=== PATIENT | male | born 1970 | race Caucasian/White ===

== ENCOUNTER → 2021-10-01 | Outpatient (CLI) | payer SELFPAY | LOC: LAB 11:34 | DX: U07.1 COVID-19 (principal); J40 Bronchitis, not specified as acute or chronic; J30.9 Allergic rhinitis, unspecified; J02.9 Acute pharyngitis, unspecified | CPT/HCPCS: 71046 ==

== ENCOUNTER 2021-10-05 16:38 | Emergency (ER) | payer SELFPAY ==
[2021-10-05 19:33] LABS: HEMOGLOBIN 14.6 gm/dl (14.0-17.5); RED BLOOD COUNT 4.66 M/UL (4.20-5.50)
[2021-10-05 20:11] LABS: BUN/CREATININE RATIO 17 (0-10)
[2021-10-05] MEDS ORDERED: ZOFRAN ODT 4 MG4 MG SL (22:51)
[2021-10-05] MEDS ORDERED: BENZONATATE100 MG PO (23:04)
== END 2021-10-05 23:05 | disposition home or self-care (01) ==
LOC: ER1 16:38
PROVIDERS: Emergency Medicine
DX: U07.1 COVID-19 (principal)
CPT/HCPCS: 36600; 71045; 80053; 82550; 82553; 82803; 83880; 84484; 85025; 85379; 93005; 96374; 99285; J2405; Q9967